=== PATIENT | female | born 1995 | race Hispanic/Latino ===

== ENCOUNTER 2017-09-11 23:57 | Emergency (ER) | payer BC ==
[2017-09-12] MEDS ORDERED: Albuterol-Ipratrop 3 mg / 0.5 (3 ml) UD INH STA ×2 (00:39)
[2017-09-12] MEDS ORDERED: Albuterol-Ipratrop 3 mg / 0.5 (3 ml) UD ONE (00:46)
--- NOTE | 2017-09-12 01:21 | ED PDOC ---
HPI: Asthma Time Seen by Provider: 09/12/17 00:32 Chief Complaint (Nursing): Respiratory Distress Chief Complaint (Provider): Asthma Exacerbation History Per: Patient History/Exam Limitations: no limitations Onset/Duration Of Symptoms: Mins (prior to arrival) Current Symptoms Are (Timing): Better Additional Complaint(s): 21 year old female with a hx of asthma presents to the ED for evaluation of asthma exacerbation. Patient reports that prior to arrival, she took a hot shower, and hot showers, along with exercise, are usually her triggers. On arrival, she states she is feeling better, but still has chest congestion. PMD: Dr. Garcia Past Medical History Reviewed: Historical Data, Nursing Documentation, Vital Signs Vital Signs: Last Vital Signs Temp 98.3 F 09/12/17 00:10 Pulse 88 09/12/17 00:10 Resp 18 09/12/17 00:10 BP 122/80 09/12/17 00:10 Pulse Ox 99 09/12/17 00:10 - Medical History PMH: Asthma - Surgical History Surgical History: No Surg Hx - Family History Family History: States: Unknown Family Hx - Home Medications Home Medications: Ambulatory Orders Medication Instructions Recorded Prednisone [Deltasone] 40 mg PO DAILY 2 Days #4 tablet 09/12/17 - Allergies Allergies/Adverse Reactions: Allergies Allergy/AdvReac Type Severity Reaction Status Date / Time No Known Allergies Allergy Verified 09/12/17 00:39 Review of Systems ROS Statement: Except As Marked, All Systems Reviewed And Found Negative Respiratory: Positive for: Other (asthma exacerbation, chest congestion) Physical Exam - Reviewed Nursing Documentation Reviewed: Yes Vital Signs Reviewed: Yes - Physical Exam Appears: Positive for: No Acute Distress Head Exam: Positive for: ATRAUMATIC, NORMOCEPHALIC Skin: Positive for: Normal Color, Warm, Dry Eye Exam: Positive for: Normal appearance ENT: Positive for: Normal ENT Inspection Neck: Positive for: Normal, Painless ROM, Supple Cardiovascular/Chest: Positive for: Regular Rate, Rhythm Respiratory: Positive for: Wheezing (mild end expiratory) Gastrointestinal/Abdominal: Positive for: Normal Exam, Soft. Negative for: Tenderness Neurologic/Psych: Positive for: Alert, Oriented (x3). Negative for: Motor/ Sensory Deficits - ECG O2 Sat by Pulse Oximetry: 99 (RA) Pulse Ox Interpretation: Normal Medical Decision Making Medical Decision Making: A/P 21 year old female with a hx of asthma presenting with mild asthma exacerbation --well appearing, speaking in full sentences, with normal vitals --will treat with duoneb and steroid, and will reeval 230 On reevaluation, patient reports she is feeling much better. She is advised to follow up with her PMD in 2-3 days, or to the ED with any new or worsening symptoms. All questions answered at this time. Scribe Attestation: Documented by Landy Gregory, acting as a scribe for Jl Dumont MD. Provider Scribe Attestation: All medical record entries made by the Scribe were at my direction and personally dictated by me. I have reviewed the chart and agree that the record accurately reflects my personal performance of the history, physical exam, medical decision making, and the department course for this patient. I have also personally directed, reviewed, and agree with the discharge instructions and disposition. Disposition - Clinical Impression Clinical Impression: Asthma exacerbation - Disposition Referrals: JO BONE DO [Other] Disposition: Routine/Home Disposition Time: 02:33 Condition: STABLE Prescriptions: Prednisone [Deltasone] 40 mg PO DAILY 2 Days #4 tablet Instructions: Asthma, Adult (DC) Forms: [employer] (Portuguese)
[2017-09-12 04:21] VITALS: RESP 16
[2017-09-12 04:24] VITALS: BP 105/52; PULSE 63; TEMP 98; O2SAT 100
== END 2017-09-12 02:45 | disposition home or self-care (01) ==
LOC: H.ER 23:57
DX: J45.901 Unspecified asthma with (acute) exacerbation (principal)